=== PATIENT | male | born 1965 | race Caucasian/White ===

== ENCOUNTER 2024-03-31 07:30 | Day surgery (SDC) | payer OTHER ==
[~2024-03-31 07:30] MED LIST: BETADINE 5% OPHTHALMIC 30 ML OP ONE; DEXMEDETOMIDINE 80 MCG/20ML-NS IV ONE; TRIAMCINOLONE 15 MG/ML INJ INTRAOP ONE; VIGAMOX/BSS 0.15% SYR IO ONE
[2024-03-31] MEDS: TETRACAINE 0.5% STERI-UNIT SOL OP ONE ×2 (08:11→08:50)
[2024-03-31] MEDS: Sodium Chloride 0.9% 10 ML FLUSH Syringe IJ ONE (08:12)
[2024-03-31] MEDS: Ak-Dilate OPHTHALMIC*** 1.065 ML, Cyclogyl 1% OPHTH SOL 1.065 ML, GATIFLOXACIN 0.5% OPH... OP ONE (08:13)
[2024-03-31] MEDS ORDERED: DEXMEDETOMIDINE 80 MCG/20ML-NS IV ONE ×2 (09:15)
[2024-03-31] MEDS ORDERED: Epinephrine Preservative Free 1 MG/ML IJ ONE (09:15)
[2024-03-31] MEDS ORDERED: Zofran 4 MG/2 ML VIAL IV PRN (09:15)
[2024-03-31] MEDS ORDERED: propofoL IV ONE (10:33)
[2024-03-31] MEDS ORDERED: PHENYLEPHRINE HCL ONE (10:42)
[2024-03-31 10:57] VITALS: RESP 16
[2024-03-31] MEDS: ACETAZOLAMIDE 250 MG TABLET PO ONE (11:02)
[2024-03-31 11:13] VITALS: BP 112/79; PULSE 93; TEMP 97.2; O2SAT 99
== END 2024-03-31 11:27 | disposition home or self-care (01) ==
LOC: SDC 07:30
PROVIDERS: ATTEND Ophthalmology
DX: H25.812 Combined forms of age-related cataract, left eye (principal); E11.9 Type 2 diabetes mellitus without complications
CPT/HCPCS: 82947; C1780; J0171; J2371; J2704; A9270-GY

== ENCOUNTER 2024-04-10 08:09 | Day surgery (SDC) | payer OTHER ==
[~2024-04-10 08:09] MED LIST changes: -BETADINE 5% OPHTHALMIC 30 ML OP ONE; -DEXMEDETOMIDINE 80 MCG/20ML-NS IV ONE; +TETRACAINE 0.5% STERI-UNIT SOL OP ONE; -TRIAMCINOLONE 15 MG/ML INJ INTRAOP ONE; -VIGAMOX/BSS 0.15% SYR IO ONE
[2024-04-10] MEDS ORDERED: Lactated Ringers 1,000 ML IV ONE (08:21)
[2024-04-10] MEDS: Lactated Ringers 1,000 ML IV SCH (08:26)
[2024-04-10] MEDS: TETRACAINE 0.5% STERI-UNIT SOL OP ONE (08:34)
[2024-04-10] MEDS: Ak-Dilate OPHTHALMIC*** 1.065 ML, Cyclogyl 1% OPHTH SOL 1.065 ML, GATIFLOXACIN 0.5% OPH... OP ONE (08:35)
[2024-04-10] MEDS ORDERED: Epinephrine Preservative Free 1 MG/ML INTRAOP NR (10:00)
[2024-04-10] MEDS ORDERED: Zofran 4 MG/2 ML VIAL IV PRN (10:00)
[2024-04-10] MEDS ORDERED: BETADINE 5% OPHTHALMIC 30 ML OP NR (10:00)
[2024-04-10] MEDS ORDERED: DEXMEDETOMIDINE 80 MCG/20ML-NS IV NR (10:00)
[2024-04-10] MEDS ORDERED: VIGAMOX/BSS 0.15% SYR IO NR (10:00)
[2024-04-10] MEDS ORDERED: TRIAMCINOLONE 15 MG/ML INJ INTRAOP NR (10:00)
[2024-04-10] MEDS ORDERED: propofoL IV ONE ×2 (11:12→11:20)
[2024-04-10 11:54] VITALS: RESP 16
[2024-04-10] MEDS: ACETAZOLAMIDE 250 MG TABLET PO ONE (11:55)
[2024-04-10 11:59] VITALS: O2SAT 94
[2024-04-10 12:03] VITALS: BP 117/80; PULSE 92; TEMP 97.4
== END 2024-04-10 12:18 | disposition home or self-care (01) ==
LOC: SDC 08:09
PROVIDERS: ATTEND Ophthalmology
DX: H25.811 Combined forms of age-related cataract, right eye (principal); E11.9 Type 2 diabetes mellitus without complications
CPT/HCPCS: 82947; C1780; J0171; J2704; A9270-GY